=== PATIENT | female | born 1995 | race Caucasian/White ===

== ENCOUNTER 2017-07-14 12:15 | Emergency (ER) | payer BC, OTHER ==
[~2017-07-14] VITALS: Ht 172.7 cm; Wt 84.4 kg
[~2017-07-14 12:15] MED LIST: MTR600X PO; PREN1TAB29
[2017-07-14 12:21] VITALS: TEMP 36.9; Ht 172.7 cm; Wt 84.4 kg
--- NOTE | 2017-07-14 12:51 | EMERGENCY ROOM VISIT NOTE ---
History Report prepared by Rona: Michelle Foy Under the Supervision of: Dr. Ashutosh Kirkpatrick D.O. First contact with patient: 12:37 Chief Complaint: SHOULDER PAIN Stated Complaint: SHOULDER PAIN,HEAD PAIN History of Present Illness The patient is a 22 year old female who presents to the Emergency Room with complaints of a sudden fall that occurred yesterday morning. She currently rates her discomfort as a 9/10 in severity. The patient states that she slipped and fell down 5 wooden steps yesterday morning. She states that she landed on her left shoulder and reports left shoulder pain today. The patient states that she also hit the left side of her head and cannot remember if she lost consciousness. The patient reports head pain today. She denies seeing any one since the fall. The patient reports numbness to her left shoulder as well. She denies any neck pain, leg pain, nausea, vomiting, chest pain, back pain, or difficulty walking. The patient states that her tetanus is up to date. Source of History: patient Onset: yesterday morning Position: other (global) Symptom Intensity: 9/10 Quality: other (fall) Timing: other (sudden) Associated Symptoms: + headache, No neck pain, No chest pain, No nausea, No vomiting, No back pain Note: Associated Symptoms: left shoulder pain Review of Systems See HPI for pertinent positives & negatives. A total of 10 systems reviewed and were otherwise negative. Past Medical & Surgical Medical Problems: (1) No active medical problems Family History Patient reports no known family medical history. Social History Smoking Status: Current Every Day Smoker Marital Status: single Occupation Status: employed Current/Historical Medications No Active Prescriptions or Reported Meds Allergies Coded Allergies: Cinnamon Flavor (Verified Allergy, Unknown, artificial Cinnamon, 12/05/14) Physical Exam Vital Signs Date Time Temp Pulse Resp B/P (MAP) Pulse Ox O2 Delivery O2 Flow Rate FiO2 07/14/17 14:37 69 18 125/60 97 07/14/17 14:02 66 18 112/66 97 Room Air 07/14/17 12:21 36.9 79 18 142/73 100 Physical Exam GENERAL: Patient is awake, alert, and in no acute distress. Patient is resting comfortably and showing no signs of anxiety EYES: The conjunctivae are clear. The pupils are round and reactive. EARS, NOSE, MOUTH AND THROAT: The nose is without any evidence of any deformity. Mucous membranes are moist tongue is midline NECK: The neck is nontender and supple. Cervical spine is clinically cleared. RESPIRATORY: Normal respiratory effort is noted there is no evidence of wheezing rhonchi or rales CARDIOVASCULAR: Regular rate and rhythm noted there no murmurs rubs or gallops normal S1 normal S2 GASTROINTESTINAL: The abdomen is soft. Bowel sounds are present in all quadrants. Abdomen is nontender BACK: No midline tenderness or or step-off noted range of motion in flexion extension as well as rotation no signs of muscle spasm noted MUSCULOSKELETAL/EXTREMITIES: Tenderness over lateral aspect of the left shoulder , mild ecchymosis and swelling, range of motion was intact but painful. SKIN: There is no obvious evidence of any rash. There are no petechiae, pallor or cyanosis noted. NEUROLOGIC: Patient is awake alert and oriented x3 strength is symmetric patellar reflexes are 2+ bilaterally Medical Decision & Procedures ER Provider Diagnostic Interpretation: Radiology results as stated below per my review and radiologist interpretation: L HUMERUS MIN 2 VIEWS ROUTINE CLINICAL HISTORY: Left shoulder pain following fall. COMPARISON: None FINDINGS: No acute fracture of the left humerus is identified. Alignment of the left shoulder and elbow appears anatomic. IMPRESSION: No acute fracture of the left humerus. Electronically signed by: Fredy Chong M.D. 07/14/2017 1:15 PM Dictated Date/Time: 07/14/2017 1:[address] OF THE HEAD WITHOUT CONTRAST CLINICAL HISTORY: Fall. COMPARISON STUDY: No previous studies for comparison. CT DOSE: 537.48 mGy.cm TECHNIQUE: Helical axial images of the head were obtained without IV contrast. Automated exposure control was utilized for the study. A dose lowering technique was utilized adhering to the principles of ALARA. FINDINGS: No acute intracranial hemorrhage, midline shift or mass effect is present. Ventricular system is normal. Basilar cisterns are patent. There are no extra-axial collections. Cisneros-white differentiation is maintained. There are no calvarial fractures. Visualized portions of the sinuses and mastoid air cells are clear. IMPRESSION: 1. No acute intracranial findings. 2. No calvarial fracture. Electronically signed by: Fredy Chong M.D. 07/14/2017 2:00 PM Dictated Date/Time: 07/14/2017 1:58 PM ED Course 1240: The patient was evaluated in room A11B. A complete history and physical examination were performed. 1410: I reevaluated the patient and she is resting comfortably. I discussed the exam findings with her and I discussed the treatment plan. She verbalized complete understanding and agreement. She is ready to go home. Medical Decision Differential diagnosis: Etiologies such as fracture, dislocation, neurovascular compromise, compartment syndrome, soft tissue injury, as well as others were entertained. Nursing notes reviewed. The patient is a 22-year-old female who presented to emergency department after a fall. The patient suffered a fall down some stairs. She had significant pain in her left shoulder and had a head injury. At this time she has no focal neurologic deficit. The patient did not wish to have any pain medication at this time. I discussed her radiographic studies with her. She was encouraged to rest and avoid any strenuous activity. She was also encouraged to follow-up with her family doctor as soon as possible for further evaluation and for possible referral to a orthopedic physician if symptoms do not improve. She was also encouraged to return to the emergency department immediately if symptoms change worsen or the need arises. Head Trauma GCS Score: 15 Medication Reconcilliation Current Medication List: was personally reviewed by me Blood Pressure Screening Patient's blood pressure: Normal blood pressure Blood pressure disposition: Did not require urgent referral Impression Primary Impression: Contusion of left shoulder Additional Impression: Head injury Scribe Attestation The scribe's documentation has been prepared under my direction and personally reviewed by me in its entirety. I confirm that the note above accurately reflects all work, treatment, procedures, and medical decision making performed by me. Departure Information Dispostion Home / Self-Care Prescriptions No Active Prescriptions or Reported Meds Referrals No Doctor, Assigned (PCP) Forms HOME CARE DOCUMENTATION FORM, IMPORTANT VISIT INFORMATION, Work Instructions Patient Instructions ED Contusion Shoulder, ED Head Injury Closed, My [facility] Additional Instructions Call your family to schedule a follow-up appointment. Rest and avoid any strenuous activity. You may require referral to an orthopedic physician if symptoms do not improve with rest and conservative methods. Continue using Motrin and Tylenol for pain. Problem Qualifiers Primary Impression: Contusion of left shoulder Encounter type: initial encounter Qualified Codes: S40.012A - Contusion of left shoulder, initial encounter Additional Impression: Head injury Encounter type: initial encounter Qualified Codes: S09.90XA - Unspecified injury of head, initial encounter
--- NOTE | 2017-07-14 13:16 | DIAGNOSTIC IMAGING REPORT ---
L HUMERUS MIN 2 VIEWS ROUTINE CLINICAL HISTORY: Left shoulder pain following fall. COMPARISON: None FINDINGS: No acute fracture of the left humerus is identified. Alignment of the left shoulder and elbow appears anatomic. IMPRESSION: No acute fracture of the left humerus. Electronically signed by: Fredy Chong M.D. 07/14/2017 1:15 PM Dictated Date/Time: 07/14/2017 1:14 PM
--- NOTE | 2017-07-14 14:01 | DIAGNOSTIC IMAGING REPORT ---
CT OF THE HEAD WITHOUT CONTRAST CLINICAL HISTORY: Fall. COMPARISON STUDY: No previous studies for comparison. CT DOSE: 537.48 mGy.cm TECHNIQUE: Helical axial images of the head were obtained without IV contrast. Automated exposure control was utilized for the study. A dose lowering technique was utilized adhering to the principles of ALARA. FINDINGS: No acute intracranial hemorrhage, midline shift or mass effect is present. Ventricular system is normal. Basilar cisterns are patent. There are no extra-axial collections. Cisneros-white differentiation is maintained. There are no calvarial fractures. Visualized portions of the sinuses and mastoid air cells are clear. IMPRESSION: 1. No acute intracranial findings. 2. No calvarial fracture. Electronically signed by: Fredy Chong M.D. 07/14/2017 2:00 PM Dictated Date/Time: 07/14/2017 1:58 PM
[2017-07-14 14:37] VITALS: BP 125/60; PULSE 69; O2SAT 97
== END 2017-07-14 14:37 | disposition home or self-care (01) ==
LOC: C.EDB 12:18 → C.EDA 14:37
DX: S40.012A Contusion of left shoulder, initial encounter (principal); S09.90XA Unspecified injury of head, initial encounter; R51 Headache; W10.9XXA Fall (on) (from) unspecified stairs and steps, initial encounter; F17.210 Nicotine dependence, cigarettes, uncomplicated